=== PATIENT | female | born 1945 | race Caucasian/White ===

== ENCOUNTER → 2017-03-08 | Outpatient (CLI) | payer OTHER ==
[~2017-03-08] MED LIST: GADOBUTROL 10 ML VIAL IVP ONE
[2017-03-08 16:07] LABS: CREATININE 0.9 mg/dL (0.6-1.0); GLOMERULAR FILTRATION RATE > 60
== END ==
LOC: FIMAGING 15:12
PROVIDERS: ATTEND Surgery
DX: R22.31 Localized swelling, mass and lump, right upper limb (principal)
CPT/HCPCS: 73220; A9585

== ENCOUNTER → 2017-03-09 | Outpatient (CLI) | payer OTHER ==
[~2017-03-09] MED LIST changes: +DEPO METHYLPREDNISOLONE 40 MG/ML SDV ONE; +DEPO METHYLPREDNISOLONE 80 MG/ML SDV ONE; -GADOBUTROL 10 ML VIAL IVP ONE; +IOPAMIDOL (ISOVUE 370) 100 ML BTL IV ONE; +LIDOCAINE 1% 30 ML SDV ONE; +NA BICARBONATE 50 MEQ/50 ML VIAL ONE; +ROPIVACAINE HCL 150 MG/30 ML INJ ONE
== END ==
LOC: FIMAGING 12:50
PROVIDERS: ATTEND Orthopaedic Surgery
PROC: 3E0U3BZ Introduction of Anesthetic Agent into Joints, Percutaneous Approach (ICD-10-PCS; principal; 2017-03-09)
PROC: 3E0U33Z Introduction of Anti-inflammatory into Joints, Percutaneous Approach (ICD-10-PCS; principal; 2017-03-09)
DX: M16.11 Unilateral primary osteoarthritis, right hip (principal)
CPT/HCPCS: 20610; J1040; J2795; Q9967; J1030

== ENCOUNTER → 2017-08-05 | Outpatient (CLI) | payer OTHER | LOC: FIMAGING 10:06 | PROVIDERS: ATTEND Internal Medicine | DX: Z12.31 Encounter for screening mammogram for malignant neoplasm of breast (principal); Z79.890 Hormone replacement therapy | CPT/HCPCS: G0202 ==

== ENCOUNTER 2018-02-04 12:34 | Emergency (ER) | payer OTHER ==
--- NOTE | 2018-02-04 13:17 | EDPHY ---
H & P Stated Complaint: L ankle /fall Time Seen by Provider: 02/04/18 13:05 HPI/ROS: CHIEF COMPLAINT: Left ankle pain and deformity HISTORY OF PRESENT ILLNESS: The patient presents to the ED with complaints of left ankle pain and deformity after she fell immediately prior to arrival. The patient denies any injury to her head, neck, chest or back. She denies any associated numbness or weakness. She has moderate pain with any attempted ambulation. The patient denies prior history of traumatic injury involving the ankle. The patient takes no anticoagulants. She denies additional traumatic injury. She currently rates her pain as a 9/10. She did receive IV narcotics prior to arrival by paramedics. REVIEW OF SYSTEMS: A comprehensive 10 point review of systems is otherwise negative aside from elements mentioned in the history of present illness. Source: Patient Exam Limitations: No limitations - Medical/Surgical History Hx Asthma: Yes Hx Chronic Respiratory Disease: No Hx Diabetes: No Hx Cardiac Disease: No Hx Renal Disease: No Hx Cirrhosis: No Hx Alcoholism: No Hx HIV/AIDS: No Hx Splenectomy or Spleen Trauma: No Other PMH: htn, high cholesterol,hysterectomy, nasal surgery, bilat arthroscopic knee surgery - Social History Smoking Status: Never smoked - Physical Exam Exam: General Appearance: Alert, no distress Head: Atraumatic Eyes: Pupils equal, round, reactive ENT, Mouth: No hemotympanum, no oral trauma Neck: Nontender, trachea midline Respiratory: No chest wall tender, subcutaneous air, lungs clear bilaterally Cardiovascular: Regular rate and rhythm Abdomen: Abdomen is soft and nontender, pelvis stable Skin: No lacerations, No abrasion Back: No midline T/L/S pain Extremities: Tenderness to palpation and soft tissue swelling, deformity noted to left ankle Neurological: A&Ox3, normal motor function, normal sensory exam Constitutional: Initial Vital Signs Temperature (C) 36.9 C 02/04/18 12:37 Heart Rate 57 L 02/04/18 12:37 Respiratory Rate 18 02/04/18 12:37 Blood Pressure 130/66 H 02/04/18 12:37 O2 Sat (%) 93 02/04/18 12:37 O2 Delivery Mode Room Air Allergies/Adverse Reactions: adhesive tape Allergy (Verified 02/04/18 12:41) Rash venom-honey bee [bee venom (honey bee)] Allergy (Verified 02/04/18 12:41) Anaphylaxis Home Medications: Medication Instructions Recorded Alendronate Sodium [Fosamax 70 MG 70 mg PO FR@0700 10/21/15 (*)] Citalopram [CeleXA 20 MG] 20 mg PO DAILY 10/21/15 Fluticasone Nasal [Flonase Nasal 1 sprays NASAL DAILY PRN 10/21/15 [place]] Glucosamine Sulfate Dipot Chlr 1,000 mg PO BID 10/21/15 [Glucosamine] Herbals/Supplements -Info Only 1 ea PO DAILY 10/21/15 Magnesium Oxide [Magnesium Oxide 800 mg PO DAILY 10/21/15 400 mg (*)] Multivitamins [Multivitamin (*)] 1 each PO DAILY 10/21/15 Orick-3 Fatty Acids [Fish Oil 1000 2,000 mg PO DAILY 10/21/15 mg (*)] Temazepam [Restoril 15 MG (*)] 15 mg PO HS PRN 10/21/15 Vitamin B Complex [Super B-50 1 each PO DAILY 10/21/15 Complex] amLODIPine BESYLATE/BENAZEPRIL 1 each PO BID 10/21/15 [Lotrel 5/10 mg Cap (*)] Acetaminophen [Tylenol 325mg (*)] 325 - 650 mg PO Q6 PRN #60 tab 11/06/15 Aspirin EC [Aspirin EC 325 mg (*)] 325 mg PO DAILY #20 tab 11/06/15 Docusate Sodium [Colace 100 MG (*)] 100 mg PO BID #60 cap 11/06/15 HYDROcodone/APAP 10/325 [[place] 1 - 2 tab PO Q6 PRN #120 tab 11/06/15 10/325 (*)] celeCOXIB [Celebrex (*)] 200 mg PO DAILY #20 cap 11/06/15 oxyCODONE IR [Oxycodone Ir (*)] 5 mg PO Q6 PRN #30 tab 11/06/15 Medical Decision Making - Diagnostics Imaging Results: Imaging Impressions Ankle X-Ray 02/04/18 12:38 Impression: Ankle fracture-dislocation possibly involving a posterior talar dome fracture. Consider CT for further evaluation. Ankle X-Ray 02/04/18 13:25 Impression: Marked improvement. Procedures: Procedure: Fracture Dislocation reduction of a left trimalleolar fracture dislocation Indication: Fracture Dislocation reduction. The left closed trimalleolar fracture dislocation was reduced in the usual fashion without complications. The patient received IV fentanyl prior to the reduction. Post reduction the patient's neurovascular exam is normal. Post reduction x-ray demonstrates reduction of the joint to the anatomic position. The procedure was performed by myself. ED Course/Re-evaluation: The patient presents to the ED with trimalleolar fracture dislocation of the left ankle. The patient received an additional 100 mcg of fentanyl. I performed a reduction of the fracture dislocation and was able to reduce the talotibial dislocation. There is much improved alignment of the residual trimalleolar fracture. I consulted with Dr. Parmar who is on-call for Orthopedic surgery. He would like the patient to contact the office on Wednesday to schedule follow-up visit. The patient will be advised to elevate the extremity this weekend and be nonweightbearing. She is given crutches.. She is discharged home with a prescription for narcotic pain medication. Differential Diagnosis: Differential diagnosis considered includes fracture, sprain, dislocation - Data Points Medications Given: Discontinued Medications Fentanyl (Sublimaze) 100 mcg IVP EDNOW ONE Stop: 02/04/18 13:29 Last Admin: 02/04/18 13:29 Dose: 100 mcg Departure - Departure Disposition: Home, Routine, Self-Care Clinical Impression: Trimalleolar fracture of ankle, closed Qualifiers: Encounter type: initial encounter Laterality: left Qualified Code(s): S82.852A - Displaced trimalleolar fracture of left lower leg, initial encounter for closed fracture Condition: Good Instructions: Ankle Fracture (ED) Additional Instructions: 1. Please elevate extremity while sleeping at night. 2. Apply ice 20-30 minutes at a time 5 to 6 times a day for the next several days. 3. Contact Dr. Parmar in the morning to schedule a follow-up visit. Referrals: Nicolas Parmar MD [Medical Doctor] - As per Instructions
[2018-02-04] MEDS ORDERED: fentaNYL 100 MCG/2 ML INJ ONE (13:23)
[2018-02-04] MEDS ORDERED: fentaNYL 100 MCG/2 ML INJ IVP ONE (13:28)
[2018-02-04 14:44] VITALS: BP 126/87
== END 2018-02-04 14:41 | disposition home or self-care (01) ==
LOC: EDUNIT#
PROC: 0QSHXZZ Reposition Left Tibia, External Approach (ICD-10-PCS; principal; 2018-02-04)
DX: S82.852A Displaced trimalleolar fracture of left lower leg, initial encounter for closed fracture (principal); I10 Essential (primary) hypertension; J45.909 Unspecified asthma, uncomplicated; Z79.82 Long term (current) use of aspirin; W19.XXXA Unspecified fall, initial encounter
CPT/HCPCS: 27818; 73600; 73610; 96374; 99284; J3010

== ENCOUNTER → 2018-03-18 | Outpatient (CLI) | payer OTHER | LOC: FIMAGING 14:12 | PROVIDERS: ATTEND Orthopaedic Surgery Foot and Ankle Surgery | DX: Z09 Encounter for follow-up examination after completed treatment for conditions other than malignant neoplasm (principal); S82.852D Displaced trimalleolar fracture of left lower leg, subsequent encounter for closed fracture with routine healing ==

== ENCOUNTER → 2018-06-13 | Day surgery (SDC) | payer OTHER | END | disposition home or self-care (01) | LOC: FIMAGING 11:19 | PROVIDERS: ATTEND Internal Medicine Infectious Disease | PROC: 02HV33Z Insertion of Infusion Device into Superior Vena Cava, Percutaneous Approach (ICD-10-PCS; principal; 2018-06-13) | DX: L08.9 Local infection of the skin and subcutaneous tissue, unspecified (principal); B99.9 Unspecified infectious disease; Z79.2 Long term (current) use of antibiotics | CPT/HCPCS: 36556; 77001; C1751 ==

== ENCOUNTER → 2018-08-09 | Outpatient (CLI) | payer OTHER | LOC: FIMAGING 11:52 | PROVIDERS: ATTEND Internal Medicine | DX: Z12.31 Encounter for screening mammogram for malignant neoplasm of breast (principal) ==

== ENCOUNTER → 2018-11-02 | Outpatient (CLI) | payer OTHER ==
[~2018-11-02] MED LIST changes: -DEPO METHYLPREDNISOLONE 40 MG/ML SDV ONE; -DEPO METHYLPREDNISOLONE 80 MG/ML SDV ONE; +GADOBUTROL 10 ML VIAL IVP ONE; -IOPAMIDOL (ISOVUE 370) 100 ML BTL IV ONE; -LIDOCAINE 1% 30 ML SDV ONE; -NA BICARBONATE 50 MEQ/50 ML VIAL ONE; -ROPIVACAINE HCL 150 MG/30 ML INJ ONE
== END ==
LOC: FIMAGING 06:40
DX: M25.472 Effusion, left ankle (principal); M24.872 Other specific joint derangements of left ankle, not elsewhere classified; M65.872 Other synovitis and tenosynovitis, left ankle and foot; M72.2 Plantar fascial fibromatosis; Z87.81 Personal history of (healed) traumatic fracture
CPT/HCPCS: 73723; A9585; 82565-PO